=== PATIENT | female | born 1950 | race Caucasian/White ===

== ENCOUNTER 2017-09-08 16:05 | Emergency (ER) | payer MEDICARE ==
[~2017-09-08] VITALS: Ht 152.4 cm; Wt 60.0 kg
[2017-09-08 16:08] VITALS: BP 180/84; PULSE 74; RESP 12; TEMP 98.2; O2SAT 98
[2017-09-08] MEDS ORDERED: SODIUM CHLOR 0.9% 1000 ML INJ 1,000 ML IV SCH (16:55)
[2017-09-08] MEDS ORDERED: KETOROLAC TROMETHAMINE 30 MG/ML (IVP) VIAL IVP ONE (17:00)
[2017-09-08] MEDS ORDERED: SODIUM CHLORIDE 0.9% FLUSH 10 ML FLUSH IV FLUSH PRN (17:00)
[2017-09-08] MEDS ORDERED: ONDANSETRON HCL 4 MG/2 ML VIAL IVP ONE (17:00)
[2017-09-08 17:39] LABS: AUTOMATED NEUTROPHIL # 4.1 TH/MM3 (1.8-7.7); BASOPHIL # 0.1 TH/MM3 (0-0.2); BASOPHIL % 0.9 % (0.0-2.0); EOSINOPHIL # 0.1 TH/MM3 (0-0.4); EOSINOPHIL % 1.6 % (0.0-4.0); HEMATOCRIT 40.9 % (35.0-46.0); HEMOGLOBIN 14.3 GM/DL (11.6-15.3); LYMPH % 27.5 % (9.0-44.0); LYMPHOCYTE # 1.8 TH/MM3 (1.0-4.8); MEAN CELL VOLUME 94.4 FL (80.0-100.0); MEAN CORPUSCULAR HEMOGLOBIN 32.9 PG (27.0-34.0); MEAN CORPUSCULAR HGB CONC 34.9 % (32.0-36.0); MEAN PLATELET VOLUME 8.2 FL (7.0-11.0); MONO % 6.9 % (0.0-8.0); MONOCYTE # 0.4 TH/MM3 (0-0.9); NEUT % 63.1 % (16.0-70.0); PLATELET COUNT 180 TH/MM3 (150-450); RED BLOOD COUNT 4.33 MIL/MM3 (4.00-5.30); RED CELL DISTRIBUTION WIDTH 13.2 % (11.6-17.2); WHITE BLOOD COUNT 6.5 TH/MM3 (4.0-11.0)
[2017-09-08 17:46] LABS: BILIRUBIN, URINE NEG (NEG); BLOOD, URINE TRACE (NEG); GLUCOSE,URINE NEG (NEG); KETONE, URINE NEG (NEG); NITRITE,URINE NEG (NEG); SQUAMOUS EPITHELIAL CELL URINE 3 /hpf (0-5); URINE COLOR YELLOW (YELLW/STRAW); URINE LEUKOCYTE ESTERASE MOD (NEG)
[2017-09-08 18:15] LABS: BICARBONATE 26.3 MEQ/L (21.0-32.0); CALCIUM 9.4 MG/DL (8.5-10.1); CREATININE 0.71 MG/DL (0.50-1.00)
[2017-09-08 19:03] VITALS: O2SAT 97
[2017-09-08 19:10] VITALS: BP 211/92; PULSE 70; RESP 16; O2SAT 98
[2017-09-08] MEDS ORDERED: HYDROmorphone HCL PF 2 MG/ML VIAL IV PUSH ONE (19:15)
[2017-09-08] MEDS ORDERED: MORPHINE SULFATE 2 MG/ML INJ IV PUSH ONE (19:15)
[2017-09-08] MEDS ORDERED: MORPHINE SULFATE 4 MG/ML INJ IV PUSH ONE (19:15)
[2017-09-08] MEDS ORDERED: PERC5TAB12 PO (19:28)
[2017-09-08] MEDS ORDERED: TAMS5CAP PO (19:28)
--- NOTE | 2017-09-08 19:29 | PD ---
HPI Chief Complaint: Flank/Kidney Pain Time Seen by Provider: 16:49 Travel History International Travel<30 days: No Contact w/Intl Traveler<30days: No Traveled to known affect area: No History of Present Illness HPI 67 yo F arrives complaining of L flank pain. she states pain is severe. no hematuria. pain is constant. lortab from prior er visit for same complaint has not been sufficient for pain management. timing intermittent. PFSH Past Medical History Medical History: Denies Significant Hx Tetanus Vaccination: < 5 Years Influenza Vaccination: No Menopausal: Yes Past Surgical History Appendectomy: Yes Thoracic Surgery: Yes (T3-7) Social History Alcohol Use: Yes (occas) Tobacco Use: No Substance Use: No Allergies-Medications (Allergen,Severity, Reaction): Coded Allergies: penicillin G (Verified Allergy, Severe, Anaphylaxis, 09/08/17) Reported Meds & Prescriptions Reported Meds & Active Scripts Active Flomax (Tamsulosin HCl) 0.4 Mg Cap 0.4 Mg PO HS Percocet (Oxycodone-Acetaminophen) 5-325 mg Tab 2 Tab PO Q6H PRN Review of Systems Except as stated in HPI: all other systems reviewed are Neg Physical Exam Narrative GENERAL: 67 yo F, WNWD, Mild distress 2/2 pain SKIN: Warm and dry. HEAD: Atraumatic. Normocephalic. EYES: Pupils equal and round. No scleral icterus. No injection or drainage. ENT: No nasal bleeding or discharge. Mucous membranes pink and moist. NECK: Trachea midline. No JVD. CARDIOVASCULAR: Regular rate and rhythm. RESPIRATORY: No accessory muscle use. Clear to auscultation. Breath sounds equal bilaterally. GASTROINTESTINAL: Minimal Flank ttp; abdomen soft. MUSCULOSKELETAL: Extremities without clubbing, cyanosis, or edema. No obvious deformities. NEUROLOGICAL: Awake and alert. No obvious cranial nerve deficits. Motor grossly within normal limits. Five out of 5 muscle strength in the arms and legs. Normal speech. PSYCHIATRIC: Appropriate mood and affect; insight and judgment normal. Data Data Last Documented VS Vital Signs Date Time Temp Pulse Resp B/P (MAP) Pulse Ox O2 Delivery O2 Flow Rate FiO2 09/08/17 20:17 09/08/17 20:12 68 16 98 Room Air 09/08/17 16:08 98.2 Vital Signs Date Time Temp Pulse Resp B/P (MAP) Pulse Ox O2 Delivery O2 Flow Rate FiO2 09/08/17 20:17 09/08/17 20:12 68 16 168/83 (111) 98 Room Air 09/08/17 19:10 70 16 211/92 (131) 98 Room Air 09/08/17 19:03 97 Room Air 09/08/17 16:52 76 20 09/08/17 16:08 98.2 74 12 180/84 (116) 98 Orders Orders Basic Metabolic Panel (Bmp) (09/08/17 16:55) Complete Blood Count With Diff (09/08/17 16:55) Urinalysis - C+S If Indicated (09/08/17 16:55) Iv Access Insert/Monitor (09/08/17 16:55) Ecg Monitoring (09/08/17 16:55) Oximetry (09/08/17 16:55) Ondansetron Inj (Zofran Inj) (09/08/17 17:00) Sodium Chlor 0.9% 1000 Ml Inj (Ns 1000 M (09/08/17 16:55) Sodium Chloride 0.9% Flush (Ns Flush) (09/08/17 17:00) Ketorolac Inj (Toradol Inj) (09/08/17 17:00) Alcohol (Ethanol) (09/08/17 16:50) Hydromorphone Pf Inj (Dilaudid Pf Inj) (09/08/17 19:15) Ct Abd/Pel W/O Iv Contrast (09/08/17 19:05) Morphine Inj (Morphine Inj) (09/08/17 19:15) Labs Laboratory Tests Test 09/08/17 16:45 09/08/17 16:50 Urine Color YELLOW Urine Turbidity CLEAR Urine pH 5.0 Urine Specific [place] 1.019 Urine Protein NEG mg/dL Urine Glucose (UA) NEG mg/dL Urine Ketones NEG mg/dL Urine Occult Blood TRACE Urine Nitrite NEG Urine Bilirubin NEG Urine Urobilinogen LESS THAN 2.0 MG/DL Urine Leukocyte Esterase MOD Urine WBC LESS THAN 1 /hpf Urine Squamous Epithelial Cells 3 /hpf Microscopic Urinalysis Comment CULT NOT INDICATED White Blood Count 6.5 TH/MM3 Red Blood Count 4.33 MIL/MM3 Hemoglobin 14.3 GM/DL Hematocrit 40.9 % Mean Corpuscular Volume 94.4 FL Mean Corpuscular Hemoglobin 32.9 PG Mean Corpuscular Hemoglobin Concent 34.9 % Red Cell Distribution Width 13.2 % Platelet Count 180 TH/MM3 Mean Platelet Volume 8.2 FL Neutrophils (%) (Auto) 63.1 % Lymphocytes (%) (Auto) 27.5 % Monocytes (%) (Auto) 6.9 % Eosinophils (%) (Auto) 1.6 % Basophils (%) (Auto) 0.9 % Neutrophils # (Auto) 4.1 TH/MM3 Lymphocytes # (Auto) 1.8 TH/MM3 Monocytes # (Auto) 0.4 TH/MM3 Eosinophils # (Auto) 0.1 TH/MM3 Basophils # (Auto) 0.1 TH/MM3 CBC Comment DIFF FINAL Differential Comment Blood Urea Nitrogen 16 MG/DL Creatinine 0.71 MG/DL Random Glucose 83 MG/DL Calcium Level 9.4 MG/DL Sodium Level 138 MEQ/L Potassium Level 3.7 MEQ/L Chloride Level 103 MEQ/L Carbon Dioxide Level 26.3 MEQ/L Anion Gap 9 MEQ/L Estimat Glomerular Filtration Rate 82 ML/MIN Ethyl Alcohol Level 57 MG/DL [facility] Medical Decision Making Medical Screen Exam Complete: Yes Emergency Medical Condition: Yes Medical Record Reviewed: Yes Differential Diagnosis renal stone, divertculitis, uti, pyelo, colitis, msk pain Narrative Course CBC & BMP Diagram 09/08/17 16:50 Calcium Level 9.4 EtOH 57 UA: hematuria Last Impressions Abdomen/Pelvis CT 09/08/17 190 Signed Impressions: Service Date/Time: Friday, September 08, 2017 19:04 - CONCLUSION: Negative renal colic CT. Bandar Field MD pain controlled follow up discussion with patient subclinical stone potentially possibly msk pain Diagnosis Primary Impression: Hematuria Qualified Codes: R31.9 - Hematuria, unspecified Additional Impression: Flank pain Med/Other Pt SpecificInfo: Prescription(s) given Scripts Tamsulosin (Flomax) 0.4 Mg Cap 0.4 MG PO HS for Manage Prostate Problems, #4 CAP 0 Refills Prov: Marlon Pierce MD 09/08/17 Oxycodone-Acetaminophen (Percocet) 5-325 mg Tab 2 TAB PO Q6H Y for PAIN SCALE 6 TO 10, #15 TAB 0 Refills Prov: Marlon Pierce MD 09/08/17 Disposition: 01 DISCHARGE HOME Condition: Stable Marlon Pierce MD Sep 08, 2017 19:29
--- NOTE | 2017-09-08 19:51 | RADRPT ---
EXAM DATE/TIME: 09/08/2017 19:04 [place] COMPARISON: No previous studies available for comparison. INDICATIONS : Bilateral flank abdomen pain. ORAL CONTRAST: No oral contrast ingested. RADIATION DOSE: 12.79 CTDIvol (mGy) MEDICAL HISTORY : None SURGICAL HISTORY : Appendectomy. ENCOUNTER: Initial ACUITY: 1 day PAIN SCALE: 8/10 LOCATION: Bilateral flank TECHNIQUE: Renal colic protocol. Volumetric scanning of the abdomen and pelvis was performed. Using automated exposure control and adjustment of the mA and/or kV according to patient size, radiation dose was kep t as low as reasonably achievable to obtain optimal diagnostic quality images. DICOM format image da ta is available electronically for review and comparison. FINDINGS: Right side: No evidence of hydronephrosis. No calcified renal or ureteric stones. Left side: No evidence of hydronephrosis. No evidence of calcified renal or ureteral stones. Bladder: Smooth margins. No calcifications within the lumen. Other: Anteverted uterus. Several small bilateral calcified phleboliths. No calcified gallstones. No dila marisol loops of small or large bowel. Moderate curvature of the lumbar spine convex towards the left. CONCLUSION: Negative renal colic CT. Bandar Field MD on September 08, 2017 at 19:46 Board Certified Radiologist. This report was verified electronically.
[2017-09-08 20:12] VITALS: BP_SYST 168; BP_SYST 180; BP_DIAS 83; PULSE 68; RESP 16; O2SAT 98
== END 2017-09-08 20:29 | disposition home or self-care (01) ==
LOC: NEPE 16:05
DX: R31.9 Hematuria, unspecified (principal); R10.9 Unspecified abdominal pain
CPT/HCPCS: 74176; 80048; 80307; 81001; 85025; 96361; 96374; 96375; 99284; J1170; J1885; J2270; J2405; J7030